=== PATIENT | female | born 1975 | race Caucasian/White ===

== ENCOUNTER 2023-01-04 16:56 | Emergency (ER) | payer OTHER ==
[2023-01-04 17:15] VITALS: BP 118/73; PULSE 85; RESP 18; TEMP 98; BMI 36.0
[2023-01-04] MEDS ORDERED: RABIES IMMUNE GLOBULIN 300 UNITS/1 ML VIAL IM ONE (17:42)
[2023-01-04] MEDS ORDERED: RABIES VACCINE (PCEC)/PF 2.5 UNIT/VIAL IM ONE ×2 (17:45→17:56)
[2023-01-04] MEDS ORDERED: DIPHTH,PERTUSS(ACELL),TET 0.5 ML DISP.SYRIN IM ONE ×2 (17:47→17:56)
[2023-01-04] MEDS ORDERED: AMOX TR/POT CLAV 875MG/125MG TABLETS (FP) PO ONE (17:48)
[2023-01-04] MEDS ORDERED: RABIES IMMUNE GLOBULIN 300 UNITS/1 ML VIAL ONE (17:55)
[2023-01-04] MEDS ORDERED: AMOX TR/POT CLAV 875MG/125MG TABLETS (FP) ONE (17:55)
== END 2023-01-04 19:07 | disposition home or self-care (01) ==
LOC: JERFT 16:56
PROC: 3E0234Z Introduction of Serum, Toxoid and Vaccine into Muscle, Percutaneous Approach (ICD-10-PCS; principal; 2023-01-04)
PROC: 3E0234Z Introduction of Serum, Toxoid and Vaccine into Muscle, Percutaneous Approach (ICD-10-PCS; 2023-01-04)
DX: S81.052A Open bite, left knee, initial encounter (principal); W54.0XXA Bitten by dog, initial encounter; Y92.410 Unspecified street and highway as the place of occurrence of the external cause
CPT/HCPCS: 90375; 90471; 90675; 90715; 99283-25

== ENCOUNTER 2023-01-07 10:05 | Emergency (ER) | payer OTHER ==
[2023-01-07 10:10] VITALS: BP 139/71; PULSE 97; RESP 18; TEMP 98.1; BMI 36.0
[2023-01-07] MEDS ORDERED: RABIES VACCINE (PCEC)/PF 2.5 UNIT/VIAL IM ONE ×2 (10:44→10:49)
== END 2023-01-07 11:43 | disposition home or self-care (01) ==
LOC: JERFT 10:05 → JER 10:05 → JERFT 11:43
PROC: 3E0234Z Introduction of Serum, Toxoid and Vaccine into Muscle, Percutaneous Approach (ICD-10-PCS; principal; 2023-01-07)
DX: T88.1XXA Other complications following immunization, not elsewhere classified, initial encounter (principal); R22.32 Localized swelling, mass and lump, left upper limb; Z29.14 Encounter for prophylactic rabies immune globulin
CPT/HCPCS: 90675; 99283-25

== ENCOUNTER 2023-04-09 16:41 | Emergency (ER) | payer OTHER ==
[2023-04-09 16:58] VITALS: BP 124/71; PULSE 87; RESP 16; TEMP 98.1; BMI 36.0
[2023-04-09] MEDS ORDERED: CYCLOBENZAPRINE HCL 10 MG TABLET (FP) PO ONE (19:15)
[2023-04-09] MEDS ORDERED: ACETAMINOPHEN 500 MG TABLET (FP) PO ONE (19:15)
[2023-04-09] MEDS ORDERED: KETOROLAC TROMETHAMINE 30 MG/1 ML VIAL IM ONE (19:15)
[2023-04-09] MEDS ORDERED: ACETAMINOPHEN 500 MG TABLET (FP) ONE (19:25)
[2023-04-09] MEDS ORDERED: CYCLOBENZAPRINE HCL 10 MG TABLET (FP) ONE (19:25)
[2023-04-09] MEDS ORDERED: KETOROLAC TROMETHAMINE 30 MG/1 ML VIAL ONE (19:25)
== END 2023-04-09 20:35 | disposition home or self-care (01) ==
LOC: JERFT 16:41 → JER 16:41 → JERFT 20:35
PROC: 3E0233Z Introduction of Anti-inflammatory into Muscle, Percutaneous Approach (ICD-10-PCS; principal; 2023-04-09)
DX: M25.512 Pain in left shoulder (principal); M54.9 Dorsalgia, unspecified; G89.29 Other chronic pain; M79.10 Myalgia, unspecified site; W01.0XXA Fall on same level from slipping, tripping and stumbling without subsequent striking against object, initial encounter; Y92.009 Unspecified place in unspecified non-institutional (private) residence as the place of occurrence of the external cause
CPT/HCPCS: 71101-TC-LT-FY; 99284-25

== ENCOUNTER 2023-09-25 10:35 | Emergency (ER) | payer OTHER ==
[2023-09-25 10:54] VITALS: BP 139/76; PULSE 103; RESP 18; TEMP 98; BMI 36.0
[2023-09-25 11:36] LABS: BASO % 0.5 % (0-2.0); EOS % 0.5 % (0-4.5); LYMPH % 13.7 % (8-40); MCH 31.2 pg (25.7-33.7); MCHC 34.2 g/dl (32.0-36.0); MEAN CELL VOLUME 91.4 fl (80-96); MONO % 4.6 % (3.8-10.2); NEUT % 80.7 % (42.8-82.8); PLATELET COUNT 329 10^3/uL (134-434); RBC 4.49 M/mm3 (3.60-5.2); RDW 14.3 % (11.6-15.6); WHITE BLOOD COUNT 12.1 K/mm3 (4.0-10.0)
[2023-09-25 11:52] LABS: POTASSIUM 3.7 mmol/L (3.5-5.1)
[2023-09-25 11:53] LABS: CALCIUM 9.4 mg/dL (8.5-10.1)
[2023-09-25 11:54] LABS: BLOOD UREA NITROGEN 13.8 mg/dL (7-18)
[2023-09-25 11:57] LABS: CREATININE 0.7 mg/dL (0.55-1.3)
[2023-09-25] MEDS ORDERED: MECLIZINE HCL 25 MG TABLET (FP) ONE (13:03)
[2023-09-25] MEDS ORDERED: ACETAMINOPHEN 500 MG TABLET (FP) ONE (13:03)
[2023-09-25] MEDS: MECLIZINE HCL 25 MG TABLET (FP) PO ONE (13:08)
[2023-09-25] MEDS: ACETAMINOPHEN 500 MG TABLET (FP) PO ONE (13:08)
== END 2023-09-25 15:23 | disposition home or self-care (01) ==
LOC: JER 10:35
DX: R42 Dizziness and giddiness (principal); R51.9 Headache, unspecified; Z20.822 Contact with and (suspected) exposure to COVID-19
CPT/HCPCS: 0241U-QW; 36415; 80048; 85025; 93005; 93010; 99284-25

== ENCOUNTER 2023-10-12 11:31 | Emergency (ER) | payer OTHER ==
[2023-10-12 11:43] VITALS: BP 152/68; PULSE 88; RESP 18; TEMP 97.3; BMI 35.6
== END 2023-10-12 14:07 | disposition home or self-care (01) ==
LOC: JER 11:31
DX: R22.43 Localized swelling, mass and lump, lower limb, bilateral (principal); R21 Rash and other nonspecific skin eruption
CPT/HCPCS: 93971-TC; 99284-25

== ENCOUNTER 2023-11-17 01:05 | Inpatient (IN) | payer OTHER ==
[2023-11-17] MEDS ORDERED: ALBUTEROL SO4 2.5/IPRATROPIUM 0.5 INH SOL 3 ML VIAL.NEB. NEB ONE ×2 (01:19→01:51)
[2023-11-17] MEDS: ALBUTEROL SO4 2.5/IPRATROPIUM 0.5 INH SOL 3 ML VIAL.NEB. NEB SCH ×2 (01:20→12:46)
[2023-11-17 01:21] VITALS: BMI 36.0
[2023-11-17] MEDS ORDERED: ALBUTEROL SO4 0.083% IH SOL 2.5 MG/3 ML VIAL.NEB. NEB ONE (02:41)
[2023-11-17] MEDS ORDERED: ACETAMINOPHEN 500 MG TABLET (FP) ONE (02:42)
[2023-11-17] MEDS: ACETAMINOPHEN 500 MG TABLET (FP) PO ONE (02:45)
[2023-11-17] MEDS: ALBUTEROL SO4 0.083% IH SOL 2.5 MG/3 ML VIAL.NEB. NEB ONE (02:45)
[2023-11-17] MEDS: methylPREDNISolone NA SUCC 40 MG/1 ML VIAL IVPUSH ONE (06:31)
[2023-11-17 06:46] LABS: HEMATOCRIT 40.8 % (32.4-45.2); HEMOGLOBIN 13.6 GM/dL (10.7-15.3); MCH 30.7 pg (25.7-33.7); MCHC 33.3 g/dl (32.0-36.0); MEAN CELL VOLUME 92.1 fl (80-96); MEAN PLT VOLUME 8.3 fl (7.5-11.1); PLATELET COUNT 279 10^3/uL (134-434); RBC 4.44 M/mm3 (3.60-5.2); RDW 14.5 % (11.6-15.6); WHITE BLOOD COUNT 14.8 K/mm3 (4.0-10.0)
[2023-11-17 07:00] LABS: POTASSIUM 3.8 mmol/L (3.5-5.1)
[2023-11-17 07:02] LABS: BLOOD UREA NITROGEN 12.5 mg/dL (7-18); CALCIUM 9.4 mg/dL (8.5-10.1)
[2023-11-17 07:05] LABS: CREATININE 0.9 mg/dL (0.55-1.3)
[2023-11-17] MEDS: ALBUTEROL SO4 0.083% IH SOL 2.5 MG/3 ML VIAL.NEB. NEB PRN (08:13)
[2023-11-17 10:16] LABS: ANISOCYTOSIS 0; MACROCYTOSIS 0
[2023-11-17] MEDS ORDERED: ALBUTEROL SO4 0.083% IH SOL 2.5 MG/3 ML VIAL.NEB. NEB PRN (12:05)
[2023-11-17] MEDS ORDERED: AZITHROMYCIN 500 MG TABLET PO SCH (12:15)
[2023-11-17] MEDS: ENOXAPARIN NA (PORCINE) 40 MG/0.4 ML DISP.SYRIN SQ SCH (13:00)
[2023-11-17] MEDS: AZITHROMYCIN 250 MG TABLET PO SCH (13:01)
[2023-11-17] MEDS: methylPREDNISolone NA SUCC 40 MG/1 ML VIAL IVPUSH SCH (15:21)
[2023-11-17] MEDS: BUDESONIDE/FORMETEROL FUMARATE 80/4.5 mcg INHALER IH SCH (15:22)
[2023-11-17] MEDS: FLUTICASONE PROP 0.05% 16 GM NASAL SPRAY NS SCH (15:22)
[2023-11-17] MEDS: ACETAMINOPHEN 325 MG TABLET (FP) PO ONE (17:29)
[2023-11-17] MEDS: MONTELUKAST NA 10 MG TABLET PO SCH (21:34)
[2023-11-18 08:09] LABS: HEMATOCRIT 40.4 % (32.4-45.2); HEMOGLOBIN 13.6 GM/dL (10.7-15.3); LYMPH % 7.6 % (8-40); MCH 31.3 pg (25.7-33.7); MCHC 33.8 g/dl (32.0-36.0); MEAN CELL VOLUME 92.8 fl (80-96); MEAN PLT VOLUME 8.8 fl (7.5-11.1); MONO % 2.7 % (3.8-10.2); NEUT % 89.7 % (42.8-82.8); PLATELET COUNT 305 10^3/uL (134-434); RBC 4.35 M/mm3 (3.60-5.2); RDW 14.7 % (11.6-15.6)
[2023-11-18 08:24] LABS: POTASSIUM 3.8 mmol/L (3.5-5.1)
[2023-11-18 08:25] LABS: ALBUMIN 3.8 g/dl (3.4-5.0); CALCIUM 9.5 mg/dL (8.5-10.1)
[2023-11-18 08:29] LABS: CREATININE 0.8 mg/dL (0.55-1.3)
[2023-11-18 08:30] LABS: TOT PROT 7.4 g/dl (6.4-8.2)
[2023-11-18 08:31] LABS: BILIRUBIN,TOTAL 0.2 mg/dL (0.2-1)
[2023-11-18] MEDS ORDERED: methylPREDNISolone NA SUCC 40 MG/1 ML VIAL IVPUSH SCH (10:00)
[2023-11-18] MEDS: ACETAMINOPHEN 325 MG TABLET (FP) PO ONE (22:13)
[2023-11-19] MEDS: ACETAMINOPHEN 325 MG TABLET (FP) PO PRN (12:49)
[2023-11-19] MEDS: methylPREDNISolone NA SUCC 40 MG/1 ML VIAL IVPUSH SCH (17:45)
[2023-11-19] MEDS: diphenhydrAMINE HCL 25 MG CAPSULE (FP) PO ONE (22:03)
[2023-11-20 15:04] VITALS: RESP 20
[2023-11-21 06:40] VITALS: BP 121/88; PULSE 69; TEMP 98.4
== END 2023-11-21 14:45 | disposition home or self-care (01) | DRG 141 ==
LOC: JER 01:05 → JERBED 06:05 → J8W 08:00 → OBSVTOIN 19:40
PROVIDERS: ADMIT Internal Medicine; ATTEND Internal Medicine
DX: J45.901 Unspecified asthma with (acute) exacerbation (principal); I10 Essential (primary) hypertension; J31.0 Chronic rhinitis
CPT/HCPCS: 0241U-QW; 36415; 71045-TC-FY; 80048; 80053; 83036; 85025; 93005; 93010; 94150; 94640; 99285-25; G0378

== ENCOUNTER 2025-01-31 10:14 | Emergency (ER) | payer OTHER ==
[2025-01-31 10:31] VITALS: BP 138/57; PULSE 94; RESP 18; TEMP 97.9; BMI 37.5
[2025-01-31] MEDS ORDERED: MECLIZINE HCL 25 MG TABLET (FP) ONE (11:23)
[2025-01-31 11:32] LABS: ABSOLUTE IMMATURE GRANULOCYTES 0.04 x10^3/uL (0.0-0.031); BASOPHILS # 0.04 x10^3/uL (0.01-0.08); EOSINOPHIL % 5.3 % (0.7-5.8); EOSINOPHILS # 0.47 x10^3/uL (0.04-0.36); MCHC 32.3 g/dl (32.2-35.5); MEAN CELL VOLUME 95.1 fl (79.4-94.8); MEAN PLT VOLUME 10.2 fl (9.4-12.3); MONOCYTE # 0.60 x10^3/uL (0.24-0.86); MONOCYTE % 6.8 % (4.7-12.5); RDW 13.2 % (12.2-17.1)
[2025-01-31 11:39] LABS: INR 1.06 (0.83-1.09); PROTHROMBIN TIME (PATIENT) 11.7 SEC (9.7-13.0)
[2025-01-31 11:42] LABS: ACTIVATED PTT 35.2 SECONDS (25.2-36.5)
[2025-01-31] MEDS: MECLIZINE HCL 25 MG TABLET (FP) PO ONE (11:44)
[2025-01-31] MEDS: LACTATED RINGERS SOLUTION 1000 ML INFUS.BAG IV ONE (11:44)
[2025-01-31 11:51] LABS: URINE APPEARANCE CLEAR; URINE BILIRUBIN NEGATIVE (NEGATIVE); URINE COLOR YELLOW; URINE GLUCOSE (UA) NEGATIVE (NEGATIVE); URINE KETONE NEGATIVE (NEGATIVE); URINE LEUK ESTERASE NEGATIVE (NEGATIVE); URINE NITRITE NEGATIVE (NEGATIVE); URINE PROTEIN NEGATIVE (NEGATIVE); URINE UROBILINOGEN 1.0 mg/dL (0.2-1.0)
[2025-01-31 12:22] LABS: ALK PHOS 165.0 U/L (45-117); CO2 29.0 mmol/L (21-32); CREATININE 0.9 mg/dL (0.55-1.3); GLUCOSE,RANDOM 97.0 mg/dL (74-106); SGOT/AST 22.0 U/L (15-37); SGPT/ALT 34.0 U/L (13-61); TOT PROT 7.4 g/dl (6.4-8.2)
== END 2025-01-31 15:05 | disposition home or self-care (01) ==
LOC: JER 10:14
DX: R42 Dizziness and giddiness (principal); R11.2 Nausea with vomiting, unspecified
CPT/HCPCS: 36415; 80053; 81003; 83735; 84100; 84484; 84703; 85025; 85610; 85730; 87086; 93005; 93010; 99284-25